=== PATIENT | male | born 1980 | race Caucasian/White ===

== ENCOUNTER → 2020-01-06 | Outpatient (CLI) | payer BC ==
--- NOTE | 2020-01-06 14:41 | US ---
EXAMINATION TYPE: US scrotum with doppler. Grayscale and color Doppler Duplex imaging performed of t he scrotum. DATE OF EXAM: 01/06/2020 COMPARISON: NONE CLINICAL HISTORY: N50.819 Testicular pain. Intermittent right testicular pain x couple weeks EXAM MEASUREMENTS: TESTICLES: Right Testicle: 4.3 x 2.5 x 3.1 cm Left Testicle: 4.5 x 2.5 x 2.8 cm EPIDIDYMIS HEAD: Right Epididymis: 1.1 x 0.9 x 1.2 cm Left Epididymis: 0.9 x 0.9 x 1.5 cm Doppler performed to assess for testicular vascularity; good bilateral color flow and waveforms are s een. There is no evidence of testicular torsion. Presence of hydroceles: right 3.2cm, left 2.2cm Presence of varicoceles: no Left epididymis: 0.6 x 0.6 x 0.8cm cyst IMPRESSION: Left-sided epididymal cyst. Right-sided hydrocele as noted as well as a smaller left-sided hydrocele.
== END | disposition home or self-care (01) ==
LOC: RADUSWWP 12:50
PROVIDERS: ATTEND Internal Medicine
DX: N50.3 Cyst of epididymis (principal); N43.3 Hydrocele, unspecified
CPT/HCPCS: 76870; 93975